=== PATIENT | male | born 1970 | race Caucasian/White ===

== ENCOUNTER 2020-12-06 08:02 | Day surgery (SDC) | payer OTHER ==
[2020-12-06] VITALS (10 sets, daily range): BP systolic 102–123; BP diastolic 62–78; PULSE 50–69; TEMP 96.8–97.5
[~2020-12-06] VITALS: Ht 188 cm; Wt 98.1 kg
--- NOTE | 2020-12-06 08:15 | NUR ---
Patient is asleep when he arrives with oral airway in place and oxygen mask on. AMBULANCE DRIVER removes oral airway and patient's oxygen is titrated down to 2L. Patient awakens to light touch and voice. His is at the bedside and he speaks with her. Monitoring is applied -VSS and WNL on 2L oxygen. Lights are dimmed for comfort. He denies any pain. He has questions regarding the surgery and what the next steps will be. Dr. Dickson will come and speak with him and his at his next opportunity. His operative site is covered with a clean, dry, intact dressing.
--- NOTE | 2020-12-06 08:30 | NUR ---
Oxygen is titrated to off. VSS on room air. Patient is sitting up in bed, alert and oriented. He is offered and receives water to drink. He would like to wait to eat breakfast at home.
--- NOTE | 2020-12-06 08:38 | NUR ---
Dr. Dickson comes to the bedside and speaks with the patient and his .
--- NOTE | 2020-12-06 09:25 | NUR ---
Initial visit; Patient thanked Sanitation Worker Cleaning Machinery for offering encouragement and prayer prior to his surgical procedure. Sanitation Worker Cleaning Machinery offered God's blessings.
--- NOTE | 2020-12-06 09:47 | NUR ---
Patient has met discharge criteria. Discharge instructions are discussed with the patient and his . They deny questions and verbalize understanding. PIV is removed with catheter intact and hemostasis achieved. He changes to his clothing with his 's help. He is escorted to the exit via wheelchair by staff and discharged to home with ride in private vehicle to the care of his at 0947.
[2020-12-06] MEDS ORDERED: ULTRAM 50MG TAB50 MG PO (11:02)
--- NOTE | 2020-12-06 11:20 | NUR ---
Patient arrives to [facility] [address] via cart, accompanied by MARKETING SEGMENT MANAGER Nanda. He is sitting up in bed, alert and oriented. He denies any pain or nausea at this time. He is cold and is provided warm blankets. PIV is to TKO. Monitoring is applied -VSS and WNL on room air. His mom is at the bedside. Lights are dimmed for comfort. Will continue to monitor.
--- NOTE | 2020-12-06 11:20 | NUR ---
Patient's donor site has a clear tegaderm dressing over it. Site is red with a scant amount of blood under the dressing. Dressing is not saturated or leaking. Patient's graft site is covered with a clean/dry/intact dressing and the LUE is in a sling.
--- NOTE | 2020-12-06 11:35 | NUR ---
Patient's graft site dressing remains intact with small amount of shadowing seen under dressing. His donor site dressing remains intact with scant amount of serosanguinous drainage under tegaderm; dressing edges remain dry/intact.
--- NOTE | 2020-12-06 11:35 | NUR ---
Patient is resting comfortably in his room. He is offered and receives water and crackers to eat.
--- NOTE | 2020-12-06 11:50 | NUR ---
Patient is resting comfortably. Discharge criteria are discussed. VSS on room air. He has ate/drank and tolerated well. He requests and receives more water.
--- NOTE | 2020-12-06 12:00 | NUR ---
Dressings remain unchanged in assessment. Stable amount of drainage on graft site and donor site dressings.
--- NOTE | 2020-12-06 12:30 | NUR ---
Patient ambulates to the restroom with steady gait and standby assist. He voids a large amount of clear/yellow urine. Returns to room.
--- NOTE | 2020-12-06 12:50 | NUR ---
Patient has met discharge criteria. His dressings remain clean/dry/intact, drainage stable. His mother, Abi, is with him and is a retired RN. She is shown the graft site dressing and the small amount of shadowing and verbalizes understanding of monitoring drainage and reinforcing dressing as needed, or reporting if drainage amount has a sharp increase. They are given supplies for reinforcing both the graft and donor sites as needed. Discharge instructions are discussed and they deny questions and verbalize understanding. PIV is removed with catheter intact and hemostasis achieved. Staff assists him to change to his clothing, and secure his sling over his clothing. He is escorted to the exit via wheelchair by staff. His mother drives him home in private vehicle at 1250.
== END 2020-12-06 12:50 | disposition home or self-care (01) ==
LOC: SDCO 08:02
DX: C44.519 Basal cell carcinoma of skin of other part of trunk (principal)
CPT/HCPCS: A4565; J0171; J2250; J2405; J2704; J3010; J7120